=== PATIENT | male | born 1985 | race Caucasian/White ===

== ENCOUNTER 2018-05-18 12:20 | Emergency (ER) | payer OTHER ==
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
[2018-05-18] MEDS ORDERED: ACETAMINOPHEN 325 MG TABLET PO STA (13:29)
[2018-05-18] MEDS ORDERED: DEXAMETHASONE 10 MG/ML VIAL PO STA (13:29)
[2018-05-18] MEDS ORDERED: LIDOCAINE PATCH 5% TOP STA (13:29)
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
[2018-05-18 15:03] VITALS: BP 124/75
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
== END 2018-05-18 15:52 | disposition home or self-care (01) ==
LOC: ED 12:20
DX: S60.221A Contusion of right hand, initial encounter (principal); V53.6XXA Passenger in pick-up truck or van injured in collision with car, pick-up truck or van in traffic accident, initial encounter; M54.41 Lumbago with sciatica, right side; F17.200 Nicotine dependence, unspecified, uncomplicated
CPT/HCPCS: 71250; 73130; 74176; 99283; A9270

== ENCOUNTER 2020-02-11 23:14 | Outpatient (CLI) | payer OTHER | END 2020-02-11 23:15 | disposition short-term general hospital (02) | LOC: EMS 23:14 | PROVIDERS: ATTEND Surgery | DX: R11.2 Nausea with vomiting, unspecified (principal); R53.1 Weakness; R68.83 Chills (without fever) | CPT/HCPCS: A0425; A0427 ==

== ENCOUNTER 2022-11-30 02:57 | Outpatient (CLI) | payer MEDICAID | END 2022-11-30 23:59 | disposition short-term general hospital (02) | LOC: EMS 02:57 | DX: R68.83 Chills (without fever) (principal); R52 Pain, unspecified; R11.2 Nausea with vomiting, unspecified; M79.89 Other specified soft tissue disorders; R46.89 Other symptoms and signs involving appearance and behavior | CPT/HCPCS: A0425; A0429; A0999 ==

== ENCOUNTER 2023-05-30 10:06 | Outpatient (CLI) | payer OTHER, MEDICAID | END 2023-05-30 23:59 | disposition home or self-care (01) | LOC: EMS 10:06 | DX: M54.50 Low back pain, unspecified (principal); R10.2 Pelvic and perineal pain; M54.6 Pain in thoracic spine; R10.30 Lower abdominal pain, unspecified; M79.604 Pain in right leg; R20.0 Anesthesia of skin; S05.92XA Unspecified injury of left eye and orbit, initial encounter; V48.5XXA Car driver injured in noncollision transport accident in traffic accident, initial encounter; Y92.414 Local residential or business street as the place of occurrence of the external cause | CPT/HCPCS: A0425; A0427 ==